=== PATIENT | male | born 1955 | race Caucasian/White ===

== ENCOUNTER → 2016-12-09 | Outpatient (CLI) | payer OTHER | END | disposition home or self-care (01) | LOC: CDC 15:18 | DX: I25.10 Atherosclerotic heart disease of native coronary artery without angina pectoris (principal) | CPT/HCPCS: 93000 ==

== ENCOUNTER 2017-01-10 09:29 | Day surgery (SDC) | payer OTHER ==
[~2017-01-10] VITALS: Ht 167.6 cm; Wt 77.2 kg
[~2017-01-10 09:29] MED LIST: FOLIC ACID0.4 MG PO; FOLIC ACID1 MG PO; NORVASC2.5 MG PO; NORVASC5 MG PO; VITAMIN B12 PO
[2017-01-10 10:18] LABS: HEMATOCRIT 35.4 % (38.0-50.0); MCH 31.7 PG (29.0-34.0); MCHC 33.9 G/DL (30.0-36.0); MCV 93.7 FL (86-99); PLATELET COUNT 313 K/uL (156-360); RBC DIS.WIDTH-CV 13.2 % (11.8-14.6); RBC DIS.WIDTH-SD 45.2 % (39-53); RED BLOOD COUNT 3.78 M/uL (4.00-5.50); WHITE BLOOD COUNT 8.5 K/uL (4.1-10.2)
[2017-01-10 10:36] LABS: ANION GAP 17 MEQ/L (2-14); CHLORIDE 96 MEQ/L (99-109); POTASSIUM 3.7 MEQ/L (3.7-5.4); SAMPLE HEMOLYSIS CHECK 0; SAMPLE ICTERIC CHECK 0; SAMPLE LIPEMIA CHECK 0; SODIUM 138 MEQ/L (136-147)
[2017-01-10 10:42] LABS: GFR ESTIMATE (CALCULATED) 9 mL/min/; GLUCOSE 80 mg/dL (70-99); UREA NITROGEN (BUN) 47 mg/dL (9-23)
[2017-01-10 11:45] LABS: METH RESISTANT S AUREUS PCR NEGATIVE (NEGATIVE); PROBE CHECK PASS; SPECIMEN PROCESSING CONTROL PASS
[2017-01-10 14:20] VITALS: BP 125/80
[2017-01-10 15:30] VITALS: BP 128/68
[2017-01-10 16:52] VITALS: BP 118/70
== END 2017-01-10 17:10 | disposition home or self-care (01) ==
LOC: SDC 09:29
PROVIDERS: Surgery
DX: I12.0 Hypertensive chronic kidney disease with stage 5 chronic kidney disease or end stage renal disease (principal); N18.6 End stage renal disease; Z99.2 Dependence on renal dialysis; Z85.46 Personal history of malignant neoplasm of prostate
CPT/HCPCS: 80048; 85027; 87641; J0690; J1170; J1644; J2250; J2720